=== PATIENT | female | born 1995 | race Hispanic/Latino ===

== ENCOUNTER 2022-12-23 15:39 | Emergency (ER) | payer OTHER, SELFPAY ==
[2022-12-23 15:51] VITALS: BP 160/80; PULSE 102; RESP 20; TEMP 37.1; O2SAT 100; BMI 28.3
--- NOTE | 2022-12-23 16:14 | DI.CT.S_ITS ---
PROCEDURE: CT FACIAL BONES WO CON INDICATIONS: Right facial bruising and swelling secondary to fall at 2400 TECHNIQUE: Noncontrast 2.5 mm thick axial images acquired from the mandible through the frontal sinuses, with coronal and sagittal reformatting. For radiation dose reduction, the following was used: automated exposure control, adjustment of mA and/or kV according to patient size. COMPARISON: None. FINDINGS: Maxillofacial Bones: The zygomaticomaxillary complex is intact. The pterygoid plates and skull base are unremarkable. No evidence of fracture or lytic lesion. Mandible: The mandible is intact without fracture. Unremarkable temporomandibular articulation. Dentition: Unremarkable mandibular and maxillary dentition. Soft tissues: Right periorbital soft tissue swelling Orbits: The osseous orbits, globes and ocular muscles unremarkable. Sinuses and Mastoid: Left maxillary sinus 7 mm retention cyst. No air-fluid levels or wall fractures. Cartilaginous septal perforation measures 0.9 x 1.3 cm IMPRESSION: Right periorbital soft tissue swelling without fracture or ocular injury. Incidental nasal septal perforation Approved by: Bao Rudolph M.D. on 12/23/2022 at 16:05
--- NOTE | 2022-12-23 16:25 | ED.FALL ---
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 Patient states that she got out of the tent, while it was raining, in order to urinate. Patient states she slipped and fell back into the right in hit her buttocks and face on surrounding logs. Patient denies any loss of consciousness. Patient was camping with a friend, who stayed with her for several hours to make sure that she was not suffering any concussive like symptoms. Patient just wants to make sure that she is cleared for work. Review of Systems <JA Gaitan - Last Filed: 12/23/22 17:19> Review of Systems Narrative: Narrative: See HPI. GENERAL: Denies chills, fatigue, fever, sweats. HEENT: Denies sinus pain, ear pain, sore throat, difficulty swallowing, dizziness, blurry vision. Endorses right-sided facial bruising and swelling. RESPIRATORY: Denies dyspnea, cough, wheezing, sputum. CARDIOVASCULAR: Denies chest pain, palpitations, edema. GASTROINTESTINAL: Denies nausea, vomiting, abdominal pain, diarrhea, constipation. : Denies dysuria, frequency, incontinence, hematuria, urinary retention, flank pain. MSK: Denies weakness, joint pain, or bony pain. SKIN: Denies rash, skin lesions, or pruritis. Endorses bruising and swelling of right eye, forehead and right hip. NEUROLOGIC: Denies weakness, dizziness, headache, numbness, confusion. PSYCHIATRIC: No concerning psychosocial issues. Patient History <JA Gaitan - Last Filed: 12/23/22 17:19> Social History Smoking Status: Never smoker Smoking Status: Never smoker alcohol intake frequency: other Substance Use Type: does not use Exam <JA Gaitan - Last Filed: 12/23/22 17:19> Narrative Exam Narrative: Exam Narrative: GENERAL: This is a well-nourished, well-developed patient, in no acute distress. HEAD: Traumatic. Normocephalic. Bruising and swelling of right eye and forehead. EYES: Pupils equal round and reactive. Extraocular motions intact. No scleral icterus, injection or drainage. ENT: Nose without bleeding, purulent drainage. Throat without erythema, tonsillar hypertrophy or exudate. Uvula midline. Airway patent. TMs and canals clear. No sinus tenderness. No raccoon eyes or gray signs. NECK: Trachea midline. No JVD or lymphadenopathy. Nontender. No C-spine tenderness. CARDIOVASCULAR: Regular rate and rhythm without murmurs, peripheral pulses intact, cap refill <2 sec. RESPIRATORY: Breath sounds equal and clear bilaterally. No wheezes, rales, or rhonchi. No cough. No increased respiratory effort. No accessory muscle use. GASTROINTESTINAL: Abdomen soft, non-tender, nondistended without guarding or rebound. No suprapubic pain. MSK: Moves all extremities. Normal range of motion, no clubbing or edema. Neurovascularly intact. NEURO: A&O x 3. SKIN: Warm, dry, no rashes or lesions noted. Bruising and swelling right hip with full range of motion. Initial Vital Signs Initial Vital Signs: Vital Signs Temperature 98.7 F 12/23/22 15:51 Pulse Rate 102 H 12/23/22 15:51 Respiratory Rate 20 12/23/22 15:51 Blood Pressure 160/80 H 12/23/22 15:51 Pulse Oximetry 100 12/23/22 15:51 Oxygen Delivery Method Room Air 12/23/22 15:51 Reviewed <Radha Taveras DO - Last Filed: 12/23/22 18:18> Initial Vital Signs Initial Vital Signs: Vital Signs Temperature 98.7 F 12/23/22 15:51 Pulse Rate 102 H 12/23/22 15:51 Respiratory Rate 20 12/23/22 15:51 Blood Pressure 160/80 H 12/23/22 15:51 Pulse Oximetry 100 12/23/22 15:51 Oxygen Delivery Method Room Air 12/23/22 15:51 Course <JA Gaitan - Last Filed: 12/23/22 17:19> Orders Ordered: ED Orders 12/23/22 16:14 CT facial bones wo con Stat Vital Signs Vital signs: Vital Signs - 8 hr 12/23/22 15:51 12/23/22 17:23 Temperature 98.7 F Pulse Rate 102 H 107 H Respiratory Rate 20 18 Blood Pressure 160/80 H 145/91 H Pulse Oximetry 100 100 Oxygen Delivery Method Room Air Room Air <Radha Taveras DO - Last Filed: 12/23/22 18:18> Orders Ordered: ED Orders 12/23/22 16:14 CT facial bones wo con Stat Vital Signs Vital signs: Vital Signs - 8 hr 12/23/22 15:51 12/23/22 17:23 Temperature 98.7 F Pulse Rate 102 H 107 H Respiratory Rate 20 18 Blood Pressure 160/80 H 145/91 H Pulse Oximetry 100 100 Oxygen Delivery Method Room Air Room Air MDM - Fall <JA Gaitan - Last Filed: 12/23/22 17:19> Differential Diagnosis Differential diagnosis: Likely concussion without loss of consciousness and other (Facial fracture, facial contusion) Imaging Data CT scan - Facial: Radiologist's Impression: [place] [address] CT Scan Report Signed Patient: Nesha Munguia MR#: [id number] : 1995 Acct:[id number] Age/Sex: 27 / F Date of Service: 12/23/22 Loc: ED Accession Number: [id number] Procedure: CT facial bones wo con Ordering Provider: Jeffrey Tabor PROCEDURE: CT FACIAL BONES WO CON INDICATIONS: Right facial bruising and swelling secondary to fall at 2400 TECHNIQUE: Noncontrast 2.5 mm thick axial images acquired from the mandible through the frontal sinuses, with coronal and sagittal reformatting. For radiation dose reduction, the following was used: automated exposure control, adjustment of mA and/or kV according to patient size. COMPARISON: None. FINDINGS: Maxillofacial Bones: The zygomaticomaxillary complex is intact. The pterygoid plates and skull base are unremarkable. No evidence of fracture or lytic lesion. Mandible: The mandible is intact without fracture. Unremarkable temporomandibular articulation. Dentition: Unremarkable mandibular and maxillary dentition. Soft tissues: Right periorbital soft tissue swelling Orbits: The osseous orbits, globes and ocular muscles unremarkable. Sinuses and Mastoid: Left maxillary sinus 7 mm retention cyst. No air-fluid levels or wall fractures. Cartilaginous septal perforation measures 0.9 x 1.3 cm IMPRESSION: Right periorbital soft tissue swelling without fracture or ocular injury. Incidental nasal septal perforation Approved by: Bao Rudolph M.D. 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 Assessment was encouraging and CT was normal. Recommended cool compresses to eye and hip to reduce swelling. Recommended arnica ointment for the bruising. Instructed patient to follow up with her family doctor this week without fail. Work note provided. Discussed plan of care and return precautions with patient, who verbalized understanding was agreeable with course of action. Discharge Plan Departure Patient Disposition: Home Clinical Impression: Contusion of right eye Qualifiers: Encounter type: initial encounter Qualified Code(s): S05.11XA - Contusion of eyeball and orbital tissues, right eye, initial encounter Contusion of hip, right Qualifiers: Encounter type: initial encounter Qualified Code(s): S70.01XA - Contusion of right hip, initial encounter Instructions: DI for Eye Contusion, DI for Contusion Activity Restrictions/Additional Instructions: *You have been diagnosed with right eye and right hip contusion. Your CT results were normal. I recommend cool compresses to the affected areas to reduce swelling and ibuprofen for discomfort. You may trial arnica ointment for the bruising. Please follow-up with your family doctor this week. I recommend you take a few days off to recover and will provide you with a work note. For any worsening symptoms that include intolerable pain, chest pain, shortness of breath, blurry vision, etc. please return to the emergency department. Otherwise, please follow-up with your family doctor as needed. *What to do: *Please continue to take your regular medications as directed. [ ] New medication prescriptions sent to your pharmacy: [ ] [ ] New medication written as a paper prescription [x ] No new medications given *Please follow up with your primary care provider in 2-3 days, call for an appointment. Let them know you were seen in the Emergency Department and that we ask that you be seen in follow up. We will electronically transmit a record of today's note if your PCP is in our system *If you do not have a primary care provider please contact the [facility] Resource line at [phone]. They will ask some questions about your medical history and help get you set up with a doctor in the community. ? Return to ER if you should have any new, worsening or concerning symptoms, such as worsening pain, severe headache, confusion, chest pain, difficulty breathing, fever greater than 101 F, shaking chills, persistent vomiting to the point that you cannot drink fluids, or other new or worsening symptoms. Referrals: Miscellaneous,Doctor, MD [Primary Care Provider] - Stand Alone Forms: Patient Portal/API, Work Release Note ED Sign-out <Radha Taveras DO - Last Filed: 12/23/22 18:18> Cosign ED Attending Silvio Attestation: I was immediately available in the department for consultation. Documentation has been reviewed.
[2022-12-23 17:23] VITALS: BP 145/91; PULSE 107; RESP 18; O2SAT 100
== END 2022-12-23 17:25 | disposition home or self-care (01) ==
PROVIDERS: Emergency Provider Registered Nurse
DX: S05.11XA Contusion of eyeball and orbital tissues, right eye, initial encounter (principal); S70.01XA Contusion of right hip, initial encounter; W18.30XA Fall on same level, unspecified, initial encounter
CPT/HCPCS: 70486; 99281; 99284